=== PATIENT | male | born 1950 | race African-American/Black ===

== ENCOUNTER 2016-10-10 10:55 | Inpatient (IN) | payer MEDICARE, MEDICAID ==
[~2016-10-10] VITALS: Ht 198.1 cm; Wt 121.6 kg
[2016-10-10] MEDS ORDERED: Ketorolac 30mg Inj IV ONE (11:15)
[2016-10-10 11:54] LABS: BASOPHILS % (AUTO) 1.7 % (0.0-2.0); EOSINOPHILS % (AUTO) 0.6 % (0.0-3.0); LYMPHOCYTES % (AUTO) 10.5 % (20.0-45.0); MEAN CORPUSCULAR HEMOGLOBIN 30.3 PG (27.0-31.0); MEAN CORPUSCULAR HGB CONC 33.5 G/DL (32.0-36.0); MEAN CORPUSCULAR VOLUME 90 FL (80-99); MEAN PLATELET VOLUME 5.7 FL (6.5-10.1); MONOCYTES % (AUTO) 10.6 % (1.0-10.0); NEUTROPHILS % (AUTO) 76.6 % (45.0-75.0); PLATELET COUNT 349 K/UL (150-450); RED BLOOD COUNT 4.28 M/UL (4.70-6.10); RED CELL DISTRIBUTION WIDTH 11.6 % (11.6-14.8)
[2016-10-10 12:11] LABS: INR 1.1 (0.9-1.1); PROTHROMBIN TIME 11.1 SEC (9.30-11.50)
[2016-10-10 12:20] LABS: ALANINE AMINOTRANSFERASE 14 U/L (3-41); ALBUMIN/GLOBULIN RATIO 0.8 (1.0-2.7); ANION GAP 14 (5-15); ASPARTATE AMINO TRANSFERASE 14 U/L (5-40); CALCIUM 9.5 mg/dL (8.6-10.2); CARBON DIOXIDE 27 mEQ/L (20-30); CHLORIDE 96 mEQ/L (98-107); CREATININE 1.3 mg/dL (0.7-1.2); CRP QUANT 4.7 mg/dL (< 0.5); GLOMERULAR FILTRATION RATE > 60 mL/min (>60); HEMOLYSIS 2; POTASSIUM 3.8 mEQ/L (3.4-4.9); SODIUM 137 mEQ/L (135-145); TOTAL PROTEIN 8.7 g/dL (6.6-8.7); URIC ACID 10.7 mg/dL (3.0-7.5)
--- NOTE | 2016-10-10 12:43 | Diagnostic Imaging Report ---
Indication: PAIN Technique: 3 views right foot Comparison: none Findings: There is hallux valgus and bunion formation. There are lucencies within the first metatarsal head, which may represent small subchondral cysts or less likely erosions. There is metatarsus adductus. No acute fractures. No dislocations. There is hammertoe deformity of the second third and fourth digits. Impression: Findings as noted. No definite acute bony trauma for lucencies in the first metatarsal head, most likely subchondral cysts, osseous erosions secondary to process such as gouty arthropathy cannot be excluded. Correlate with clinical findings
[2016-10-10 13:00] VITALS: BP 144/85
[2016-10-10 13:05] LABS: ERYTHROCYTE SEDIMENTATION RATE 95 MM/HR (0-20)
[2016-10-10] MEDS ORDERED: fentaNYL 100 mcg/2 mL IV ONE (14:45)
[2016-10-10 15:05] VITALS: BP 152/79
--- NOTE | 2016-10-10 16:27 | Emergency Room Report ---
History of Present Illness General Chief Complaint: Lower Extremity Injury Source: Patient, EMS Present Illness HPI Patient presents with several days of worsened pain and swelling of R foot. No trauma. No fevers. There is some warmth and swelling of skin. Never had this before. Unable to walk at this time. Pain is severe 9/10, burning, radiates from toe to foot. He tried to walk with cane but fell and unable to ambulate after. States weakness of R leg, but he feels more related to pain. No calf tenderness. No cough, chest pain, dyspnea, dysuria, change in urine. Prior tx for alcohol abuse. Tetanus UTD. H/O CHF. Allergies: Coded Allergies: No Known Allergies (Unverified , 11/16/15) Patient History Past Medical History: see triage record Social History: Reports: alcohol use - prior, Denies: smoking Social History Narrative home Reviewed Nursing Documentation: PMH: Agreed, PSxH: Agreed Nursing Documentation-PMH Past Medical History: No History, Except For Hx Cardiac Problems: Yes - chf Hx Hypertension: Yes Review of Systems All Other Systems: negative except mentioned in HPI Physical Exam Vital Signs Date Time Temp Pulse Resp B/P Pulse Ox O2 Delivery O2 Flow Rate FiO2 10/10/16 10:54 98.2 84 18 151/87 98 Room Air Sp02 EP Interpretation: reviewed, normal General Appearance: well appearing, no apparent distress, GCS 15 Head: normocephalic, atraumatic Eyes: bilateral eye PERRL, bilateral eye normal inspection ENT: moist mucus membranes Neck: supple Respiratory: chest non-tender, lungs clear, normal breath sounds Cardiovascular #1: regular rate, rhythm, edema - dorsum of R foot Cardiovascular #2: 2+ radial (R) Gastrointestinal: normal inspection, normal bowel sounds, non tender, soft, no mass, non-distended, overweight Genitourinary: no CVA tenderness Musculoskeletal: back normal, normal range of motion, no calf tenderness, Kaveh 's Sign negative, inflammation, swelling Neurologic: alert, oriented x3 Psychiatric: depressed affect Skin: warm/dry, other - erythema R 1st MTP Medical Decision Making Diagnostic Impression: Primary Impression: Podagra Additional Impression: Inablility to ambulate ER Course Patient with severe R foot pain and swelling - non-traumatic. Ddx: cellulitis, gout, fracture, sprain. Though he c/o weakness, no focality in neuro so CT not indicated. Labs, EKG, foot xray indicated. Will treat with IV hydration and toradol. Labs and x-ray c/w gout. Colchicine ordered. Mild renal insufficiency. Patient slightly improved after tx with toradol and colchicine. Patient unable to ambulate. Admit med Dr. Howard. Laboratory Tests Test 10/10/16 11:30 White Blood Count 11.0 K/UL (4.8-10.8) H Red Blood Count 4.28 M/UL (4.70-6.10) L Hemoglobin 12.9 G/DL (14.2-18.0) L Hematocrit 38.6 % (42.0-52.0) L Mean Corpuscular Volume 90 FL (80-99) Mean Corpuscular Hemoglobin 30.3 PG (27.0-31.0) Mean Corpuscular Hemoglobin Concent 33.5 G/DL (32.0-36.0) Red Cell Distribution Width 11.6 % (11.6-14.8) Platelet Count 349 K/UL (150-450) Mean Platelet Volume 5.7 FL (6.5-10.1) L Neutrophils (%) (Auto) 76.6 % (45.0-75.0) H Lymphocytes (%) (Auto) 10.5 % (20.0-45.0) L Monocytes (%) (Auto) 10.6 % (1.0-10.0) H Eosinophils (%) (Auto) 0.6 % (0.0-3.0) Basophils (%) (Auto) 1.7 % (0.0-2.0) Erythrocyte Sedimentation Rate 95 MM/HR (0-20) H Prothrombin Time 11.1 SEC (9.30-11.50) Prothrombin Time INR 1.1 (0.9-1.1) PTT 25 SEC (23-33) Sodium Level 137 mEQ/L (135-145) Potassium Level 3.8 mEQ/L (3.4-4.9) Chloride Level 96 mEQ/L (98-107) L Carbon Dioxide Level 27 mEQ/L (20-30) Anion Gap 14 (5-15) Blood Urea Nitrogen 17 mg/dL (7-23) Creatinine 1.3 mg/dL (0.7-1.2) H Estimate Glomerular Filtration Rate > 60 mL/min (>60) Glucose Level 115 mg/dL (74-106) H Uric Acid 10.7 mg/dL (3.0-7.5) H Calcium Level 9.5 mg/dL (8.6-10.2) Total Bilirubin 0.6 mg/dL (0.0-1.2) Aspartate Amino Transferase (AST) 14 U/L (5-40) Alanine Aminotransferase (ALT) 14 U/L (3-41) Alkaline Phosphatase 118 U/L (40-129) C-Reactive Protein, Quantitative 4.7 mg/dL (< 0.5) H Total Protein 8.7 g/dL (6.6-8.7) Albumin 4.0 g/dL (3.5-5.2) Globulin 4.7 g/dL Albumin/Globulin Ratio 0.8 (1.0-2.7) L EKG Diagnostic Results Rate: normal Rhythm: NSR ST Segments: no acute changes Rhythm Strip Diag. Results EP Interpretation: yes Rhythm: NSR, no PVC's, no ectopy Other X-Ray Diagnostic Results Other X-Ray Diagnostic Results : X-Ray Ordered: R foot EP Interpretation: Yes Findings: no fractures, no dislocation, other - STS and bony erosion suggestive of gouty arthritis Number of Views: 3 Last Vital Signs Date Time Temp Pulse Resp B/P Pulse Ox O2 Delivery O2 Flow Rate FiO2 10/10/16 23:15 98.2 82 17 138/78 100 Room Air Status: improved Disposition: ADMITTED INPATIENT Condition: Serious Referrals: NOT CHOSEN IPA/,REFERRING (PCP) Sumanth Go M.D. Oct 10, 2016 16:27
[2016-10-10 18:00] VITALS: BP 147/71
--- NOTE | 2016-10-10 19:00 | History & Physical ---
History and Physical History & Physicial full note dictated inability to walk gout elevated UA chf cm plan pain control hydrate allopurinol dc when stable with HH JULITA MARTINEZ Oct 10, 2016 19:00
[2016-10-10 20:30] VITALS: BP 148/75
[2016-10-10 22:00] VITALS: BP 140/76
[2016-10-10] MEDS ORDERED: UNOBMED (22:30)
[2016-10-10 23:15] VITALS: BP 138/78
[2016-10-11] VITALS: BP 137/83
[2016-10-11] MEDS ORDERED: Zolpidem 5mg tab ORAL PRN (01:45)
[2016-10-11] MEDS ORDERED: FAMOTIDINE20 MG ORAL (02:02)
[2016-10-11] MEDS ORDERED: NAPROXEN250 M1 PO (02:02)
[2016-10-11] MEDS ORDERED: POTASSIUM99 M3 PO (02:02)
[2016-10-11] MEDS ORDERED: TOPAMAX100 MG ORAL (02:02)
[2016-10-11] MEDS ORDERED: TOPROL XL100 MG ORAL (02:02)
[2016-10-11] MEDS ORDERED: CARVEDILOL12.5 MG ORAL (02:02)
[2016-10-11] MEDS ORDERED: HYDROCHLOROTHIA50 MG ORAL (02:02)
[2016-10-11 04:00] VITALS: BP 149/84
[2016-10-11 07:59] VITALS: BP 131/80
--- NOTE | 2016-10-11 09:03 | General Progress Note ---
Assessment/Plan Assessment/Plan gout pain inability to walk CM CHF etoh use PLAN pain control add Tylenol #3 Valium PRN allopurinol PT evaluation hydration as needed dc when improved Subjective Allergies: Coded Allergies: No Known Allergies (Unverified , 11/16/15) Subjective still with pain and discomfort tylenol not effective Objective Last 24 Hour Vital Signs Date Time Temp Pulse Resp B/P Pulse Ox O2 Delivery O2 Flow Rate FiO2 10/11/16 07:59 98.1 109 20 131/80 95 Room Air 10/11/16 04:00 97.8 86 19 149/84 98 Room Air 10/11/16 00:00 98.1 86 20 137/83 98 Room Air 10/10/16 23:15 98.2 82 17 138/78 100 Room Air 10/10/16 23:15 98.2 82 17 138/78 100 Room Air 10/10/16 22:00 98.4 81 16 140/76 99 Room Air 10/10/16 20:30 98.3 78 16 148/75 98 Room Air 10/10/16 18:00 81 18 147/71 97 Room Air 10/10/16 15:05 98.2 86 16 152/79 96 Room Air 10/10/16 13:00 98.1 71 16 144/85 99 Room Air 10/10/16 12:04 98.1 10/10/16 10:54 98.2 84 18 151/87 98 Room Air Intake and Output 10/10/16 10/11/16 19:00 07:00 Intake Total 0 ml 260 ml Balance 0 ml 260 ml Intake Oral 0 ml 160 ml IV Total 100 ml # Voids 2 Laboratory Tests 10/10/16 11:30: White Blood Count 11.0H, Red Blood Count 4.28L, Hemoglobin 12.9L, Hematocrit 38.6L, Mean Corpuscular Volume 90, Mean Corpuscular Hemoglobin 30.3, Mean Corpuscular Hemoglobin Concent 33.5, Red Cell Distribution Width 11.6, Platelet Count 349, Mean Platelet Volume 5.7L, Neutrophils (%) (Auto) 76.6H, Lymphocytes (%) (Auto) 10.5L, Monocytes (%) (Auto) 10.6H, Eosinophils (%) (Auto) 0.6, Basophils (%) (Auto) 1.7, Erythrocyte Sedimentation Rate 95H, Prothrombin Time 11.1, Prothromb Time International Ratio 1.1, Activated Partial Thromboplast Time 25, Sodium Level 137, Potassium Level 3.8, Chloride Level 96L, Carbon Dioxide Level 27, Anion Gap 14, Blood Urea Nitrogen 17, Creatinine 1.3H, Estimat Glomerular Filtration Rate > 60, Glucose Level 115H, Uric Acid 10.7H, Calcium Level 9.5, Total Bilirubin 0.6, Aspartate Amino Transf (AST/SGOT) 14, Alanine Aminotransferase (ALT/SGPT) 14, Alkaline Phosphatase 118, C-Reactive Protein, Quantitative 4.7H, Total Protein 8.7, Albumin 4.0, Globulin 4.7, Albumin/Globulin Ratio 0.8L Height (Feet): 6 Height (Inches): 6.00 Weight (Pounds): 268 Objective WDWN NAD clear breath sounds bilaterally without rhonchi or wheeze [id number] without MRG NABS nontender no HSM no CCE toe swelling noted nonfocal JULITA MARTINEZ Oct 11, 2016 09:03
[2016-10-11] MEDS: Allopurinol 100mg Tab ORAL SCH (09:27)
[2016-10-11] MEDS: Topiramate 100mg tab ORAL SCH ×2 (09:29→21:04)
[2016-10-11] MEDS: Carvedilol 12.5mg tab ORAL SCH ×2 (09:29→21:04)
[2016-10-11] MEDS: Tylenol #3 tab (300mg/30mg) ORAL PRN ×3 (09:29→19:41)
[2016-10-11] MEDS: Heparin 5000 units/ml inj SUBQ SCH ×2 (09:33→21:06)
--- NOTE | 2016-10-11 11:01 | Cardiology Report ---
APPROVED REPORT EKG Measurement Heart [id number] Normal sinus rhythm Septal infarct, age undetermined Abnormal ECG
[2016-10-11 11:59] VITALS: BP 126/76
--- NOTE | 2016-10-11 14:39 | History and Physical Report ---
DATE OF ADMISSION: 10/10/2016 REASON FOR ADMISSION: Significant right foot pain and difficulty with ambulating. HISTORY OF PRESENT ILLNESS: This is a 66-year-old male with longstanding history of arthritis, pain, seizure disorder as well as cardiomyopathy. The patient also with longstanding history of alcoholism. The patient presents with right foot pain, this is described as 9/10, difficulty to ambulate. The patient presented by himself, currently unable to ambulate, now admitted for pain control. The patient's case discussed and reviewed. The patient is otherwise comfortable at present. The patient denied any fever or chills. He admits to problem with gout. PAST MEDICAL HISTORY: Notable for history of CHF, history of cardiomyopathy, history of seizure disorder, history of chronic anxiety, and prior history of alcoholism. MEDICATIONS: Reviewed. ALLERGIES: Reviewed. SOCIAL HISTORY: Prior history of alcohol and smoking use. The patient is presently unemployed and is disabled. FAMILY HISTORY: Noncontributory. REVIEW OF SYSTEMS: Review of systems otherwise negative with the exception of the above. PHYSICAL EXAMINATION: GENERAL: This is a well-developed male, comfortable with compliant of pain. VITAL SIGNS: Blood pressure 131/80, respirations 20, saturation 95% on room air, heart rate 109, and temperature is 98.1. HEENT: Fairly negative. Extraocular movements are intact. NECK: Supple. No adenopathy. LUNGS: Otherwise, fairly clear and symmetric. CARDIAC: S1 and S2. Regular, rate, and rhythm without murmurs, rubs, or gallops. ABDOMEN: Soft, nontender, and nondistended. EXTREMITIES: No cyanosis or clubbing. The patient has had swelling of the foot. NEUROLOGIC: Otherwise, grossly nonfocal, but unable to ambulate. The patient is using an ambulatory cane, fairly steady. LABORATORY AND DIAGNOSTIC DATA: Lab data reviewed. White count 11, hemoglobin 12.9, hematocrit 38.6, platelets are 349,000. Chemistry is otherwise fairly normal, however, uric acid is 10.7. IMPRESSION: 1. Probable gout flare-up and inability to walk. 2. joint inflammation 3. Weakness. 4. History of cardiomyopathy. 5. History of congestive heart failure. RECOMMENDATIONS: We will start the patient on allopurinol. We will add Tylenol No. 3 and Valium p.r.n. for pain. Discharge when the patient is able to ambulate and follow up with me upon discharge. Glynn Howard M.D. DR: Ramsey JOB#: [id number] CC: SAMIR
[2016-10-11 16:00] VITALS: BP 101/65
[2016-10-11 19:00] VITALS: BP 136/79
[2016-10-12] VITALS: BP 126/73
[2016-10-12] MEDS: Tylenol #3 tab (300mg/30mg) ORAL PRN ×5 (00:49→23:20)
[2016-10-12 04:00] VITALS: BP 133/76
--- NOTE | 2016-10-12 06:37 | General Progress Note ---
Assessment/Plan Assessment/Plan gout pain inability to walk CM CHF etoh use PLAN pain control add Tylenol #3 Valium PRN allopurinol PT evaluation hydration as needed dc home with home health impression, plan, and exam edited and reviewed in detail care discussed with RN Subjective Allergies: Coded Allergies: No Known Allergies (Unverified , 11/16/15) Subjective some improvement in pain and discomfort tylenol #3 effective Objective Last 24 Hour Vital Signs Date Time Temp Pulse Resp B/P Pulse Ox O2 Delivery O2 Flow Rate FiO2 10/12/16 04:00 97.3 71 20 133/76 98 Room Air 10/12/16 00:00 97.9 77 20 126/73 95 Room Air 10/11/16 21:04 78 136/79 10/11/16 20:40 97.2 10/11/16 19:00 97.5 78 20 136/79 99 Room Air 10/11/16 16:00 97.2 92 20 101/65 93 Room Air 10/11/16 11:59 97.0 80 16 126/76 97 Room Air 10/11/16 09:29 109 131/80 10/11/16 07:59 98.1 109 20 131/80 95 Room Air Intake and Output 10/11/16 10/12/16 19:00 07:00 Intake Total 1850 ml 940 ml Output Total 1150 ml 900 ml Balance 700 ml 40 ml Intake Oral 1350 ml 240 ml IV Total 500 ml 700 ml Output Urine Total 1150 ml 900 ml # Voids 2 # Bowel Movements 1 Height (Feet): 6 Height (Inches): 6.00 Weight (Pounds): 268 Objective WDWN NAD clear breath sounds bilaterally without rhonchi or wheeze [id number] without MRG NABS nontender no HSM no CCE toe swelling noted but improved nonfocal JULITA MARTINEZ Oct 12, 2016 06:37
[2016-10-12 07:58] VITALS: BP 130/73
[2016-10-12] MEDS: Allopurinol 100mg Tab ORAL SCH (08:19)
[2016-10-12] MEDS: Carvedilol 12.5mg tab ORAL SCH ×2 (08:23→21:22)
[2016-10-12] MEDS: Topiramate 100mg tab ORAL SCH ×2 (08:23→21:22)
[2016-10-12] MEDS: Heparin 5000 units/ml inj SUBQ SCH ×2 (08:26→21:23)
[2016-10-12 11:59] VITALS: BP 126/85
[2016-10-12 16:00] VITALS: BP 127/77
[2016-10-12 20:00] VITALS: BP 153/98
[2016-10-13] VITALS: BP 130/75
[2016-10-13 04:00] VITALS: BP 147/85
--- NOTE | 2016-10-13 07:29 | General Progress Note ---
Assessment/Plan Assessment/Plan gout pain inability to walk CM CHF etoh use PLAN pain control add Tylenol #3 Valium PRN allopurinol PT evaluation dc home with home health today impression, plan, and exam edited and reviewed in detail care discussed with RN Subjective Allergies: Coded Allergies: No Known Allergies (Unverified , 11/16/15) Subjective dc held due to pain and discomfort tylenol #3 effective Objective Last 24 Hour Vital Signs Date Time Temp Pulse Resp B/P Pulse Ox O2 Delivery O2 Flow Rate FiO2 10/13/16 04:00 98.2 80 20 147/85 97 Room Air 10/13/16 00:00 98.2 85 20 130/75 93 Room Air 10/12/16 21:22 89 153/98 10/12/16 20:00 98.2 89 15 153/98 98 Room Air 10/12/16 19:50 98.2 10/12/16 16:00 96.3 89 17 127/77 97 Room Air 10/12/16 11:59 98.2 86 19 126/85 97 Room Air 10/12/16 08:23 95 130/73 10/12/16 07:58 97.2 95 19 130/73 96 Room Air Intake and Output 10/12/16 10/13/16 19:00 07:00 Intake Total 520 ml 360 ml Output Total 650 ml 900 ml Balance -130 ml -540 ml Intake Oral 520 ml 360 ml Output Urine Total 650 ml 900 ml # Voids 5 Height (Feet): 6 Height (Inches): 6.00 Weight (Pounds): 268 Objective WDWN NAD clear breath sounds bilaterally without rhonchi or wheeze [id number] without MRG NABS nontender no HSM no CCE toe swelling noted but improved nonfocal JULITA MARTINEZ Oct 13, 2016 07:29
[2016-10-13] MEDS: Tylenol #3 tab (300mg/30mg) ORAL PRN (08:04)
[2016-10-13] MEDS: Allopurinol 100mg Tab ORAL SCH (08:05)
[2016-10-13] MEDS: Carvedilol 12.5mg tab ORAL SCH (08:05)
[2016-10-13] MEDS: Topiramate 100mg tab ORAL SCH (08:05)
[2016-10-13] MEDS: Heparin 5000 units/ml inj SUBQ SCH (08:09)
[2016-10-13 08:14] VITALS: BP 151/88
[2016-10-13] MEDS ORDERED: ACETAMINOPHEN-1 EAC1 ORAL (11:57)
[2016-10-13] MEDS ORDERED: ALLOPURINOL100 M1 ORAL (11:57)
[2016-10-13] MEDS ORDERED: PROTONIX40 MG ORAL (11:58)
[2016-10-13] MEDS ORDERED: DIAZEPAM5 MG ORAL (11:58)
[2016-10-13 12:00] VITALS: BP 138/84
[2016-10-13] MEDS ORDERED: MYLANTA30 M1 PO ×2 (12:01→12:07)
--- NOTE | 2016-10-14 11:29 | Discharge Summary ---
Discharge Summary Hospital Course Date of Admission Oct 10, 2016 at 15:05 Date of Discharge Oct 13, 2016 at 12:45 Admitting Diagnosis gout/weakness HPI Arpit Contreras is a 66 year old male who was admitted on Oct 10, 2016 at 15: 05 for Gout/Weakness Hospital Course [id number] Discharge Discharge Disposition Patient was discharged to SNF Discharge Diagnoses: Naomi Harden NP Oct 14, 2016 11:28
--- NOTE | 2016-10-14 23:58 | Discharge Summary 2 SIG ---
DATE OF ADMISSION: 10/10/2016 DATE OF DISCHARGE: 10/13/2016 BRIEF HOSPITAL COURSE: The patient is a 66-year-old male, who presented to emergency room for complaints of pain and swelling on the right foot. There was no trauma. No fever. Noted warmth and swelling of the skin and unable to walk. The pain was severe 9/10 burning and radiates from toe to foot. He tried to walk with a cane, but fell and unable to ambulate after. There was weakness of the right leg secondary to pain. Denies any calf tenderness. On evaluation at ED, laboratories and x-rays were done consistent with gout. Colchicine was given and was given pain medication. The patient is unable to ambulate. The patient was given allopurinol and pain management. He underwent physical therapy. He was given IV hydration and was eventually discharged to SNF. FINAL DIAGNOSES: 1. Acute gouty attack with inability to walk. 2. Cardiomyopathy. 3. Chronic congestive heart failure. 4. ETOH use. Glynn Howard M.D. I have been assigned to dictate discharge summary on this account and I was not involved in the patient's management. Naomi Harden N.P. DR: HERMAN JOB#: [id number] CC: SAMIR
== END 2016-10-13 12:45 | DRG 554 ==
LOC: EDBD 10:55 → EMR 11:45 → 4E 15:05 → EDBEDREQ 22:49
DX: M10.9 Gout, unspecified (principal); I42.9 Cardiomyopathy, unspecified; I50.9 Heart failure, unspecified; R26.2 Difficulty in walking, not elsewhere classified; F10.20 Alcohol dependence, uncomplicated
CPT/HCPCS: 36415; 80053; 84550; 85025; 85610; 85651; 85730; 86140; 93005

== ENCOUNTER 2017-01-21 19:17 | Emergency (ER) | payer MEDICARE, OTHER ==
[~2017-01-21] VITALS: Ht 198.1 cm; Wt 136.1 kg
[~2017-01-21 19:17] MED LIST: ACETAMINOPHEN-1 EAC1 ORAL; ALLOPURINOL100 M1 ORAL; CARVEDILOL12.5 MG ORAL; DIAZEPAM5 MG ORAL; FAMOTIDINE20 MG ORAL; HYDROCHLOROTHIA50 MG ORAL; MYLANTA30 M1 PO; NAPROXEN250 M1 PO; POTASSIUM99 M3 PO; PROTONIX40 MG ORAL; TOPAMAX100 MG ORAL; TOPROL XL100 MG ORAL; UNOBMED
[2017-01-21] MEDS ORDERED: Norco 5mg/325mg tab ORAL ONE (19:30)
[2017-01-21] MEDS ORDERED: INDOMETHACIN75 MG ORAL (19:33)
[2017-01-21 19:40] VITALS: BP 113/37
[2017-01-21 20:20] VITALS: BP 113/37
--- NOTE | 2017-01-23 10:26 | Diagnostic Imaging Report ---
Indications: Right foot pain Technique: 2 views right foot. Findings: Comparison: None No fracture, dislocation, joint space widening or lytic destruction, periosteal reaction , surrounding soft tissue swelling/foreign body/gas, or other acute changes are identified. Mild hallux valgus. Multiple hammertoe deformities. No other chronic changes are demonstrated. IMPRESSION: No evidence of acute abnormality in the right foot Multiple digital alignment abnormalities as described, chronic in appearance.
--- NOTE | 2017-01-27 06:14 | Emergency Room Report ---
History of Present Illness General Chief Complaint: Pain Source: Patient, EMS Present Illness HPI Patient is a 66-year-old male who presented after increased right foot pain. The patient gradual onset of symptoms. Patient stated that he had prior history of gout. Patient stated that this was similar to prior gout episodes. The patient had run out of his medications which include allopurinol. Patient had been taking thiazide diuretics. Patient had no recent fever. He denies recent alcohol intake. He denied any fever. He denied any numbness to his feet. Allergies: Coded Allergies: No Known Allergies (Unverified , 11/16/15) Patient History Past Medical History: see triage record Reviewed Nursing Documentation: PMH: Agreed, PSxH: Agreed Nursing Documentation-PMH Past Medical History: No History, Except For Hx Hypertension: Yes Hx Cancer: No Hx Gastrointestinal Problems: No Review of Systems All Other Systems: negative except mentioned in HPI Physical Exam Vital Signs Date Time Temp Pulse Resp B/P Pulse Ox O2 Delivery O2 Flow Rate FiO2 01/21/17 19:10 100.0 106 16 113/37 99 Room Air General Appearance: well appearing, no apparent distress, alert, GCS 15 Head: normocephalic, atraumatic ENT: hearing grossly normal, normal voice Neck: full range of motion, supple Respiratory: no respiratory distress, speaking full sentences Gastrointestinal: normal inspection, soft Musculoskeletal: back normal, no calf tenderness, inflammation - great toe mtp Neurologic: normal inspection, alert, oriented x3, normal gait Psychiatric: mood/affect normal Skin: no rash Medical Decision Making Diagnostic Impression: Primary Impression: Gout ER Course Patient presented for foot pain. Differential diagnosis included but was not limited to fracture, contusion, arthritis, vascular insufficiency, aortic aneurysm, cellulitis. X-ray imaging of the right foot show degenerative changes without evident fracture. Patient was advised to discontinue his thiazide diuretics and a fall with Dr. Howard for further management. The patient is also advised to continue a low purine diet and avoid fructose. Patient is advised to return if any worsening condition or if any changes in status that are concerning. Other X-Ray Diagnostic Results Other X-Ray Diagnostic Results : # of Views/Limited Vs Complete: 3 View Indication: Pain EP Interpretation: Yes Interpretation: no dislocation, no soft tissue swelling, no fractures Impression: No acute disease Interpreting ER Provider: Electronically signed by Dr. Daren Jerry M.D. Last Vital Signs Date Time Temp Pulse Resp B/P Pulse Ox O2 Delivery O2 Flow Rate FiO2 01/21/17 20:20 100.0 88 16 113/37 99 Room Air Status: improved Disposition: HOME, SELF-CARE Condition: Stable Referrals: NOT CHOSEN IPA/MD,REFERRING (PCP) Patient Instructions: Gout Additional Instructions: check with Dr. Howard about possible change in hydrochlorthiazide due to gout Daren Edwards Jan 27, 2017 06:14
== END 2017-01-21 20:20 | disposition home or self-care (01) ==
LOC: EDBD 19:17 → EMR 20:15
DX: M79.671 Pain in right foot (principal)
CPT/HCPCS: 99282

== ENCOUNTER 2017-01-24 14:00 | Inpatient (IN) | payer MEDICARE, OTHER ==
[~2017-01-24] VITALS: Ht 198.1 cm; Wt 135.2 kg
[~2017-01-24 14:00] MED LIST changes: +INDOMETHACIN75 MG ORAL
--- NOTE | 2017-01-24 15:28 | History & Physical ---
History and Physical History & Physicial Vital Signs -Extended Height: 71 inches Weight: 298 pounds Temperature: 98.6 degrees F ( oral) Pulse rate: 92 /min Pulse rhythm: regular Respirations: 13 /min O2 Sat: 96% Blood Pressure: 125/83 mm Hg Calculations Body Mass Index: 41.71 Body Surface Area (m2): 2.50 History of Present Illness Hx. Source: patient Primary complaint: Patient is here for follow up and evaluation Duration: weeks Trend of sx: worsening Fever: none Treatment: see med list Trend of Tx: worsens Additional HPI: 66 year old male patient presents today for follow up. The patient is complaining of severe pain in his lower back and foot. He is having difficulty walking and standing. He would like to be sent to a nursing facility again. He notes he needs [facility] care and unable to care for himself. he has no home on a permanent basis. Active Medications (reviewed today): ALLOPURINOL 100 MG ORAL TABS (ALLOPURINOL) 1 po qd VALIUM 5 MG ORAL TABS (DIAZEPAM) 1 qd prn TYLENOL WITH CODEINE #3 300-30 MG ORAL TABS (ACETAMINOPHEN-CODEINE) 1 tab q6 prn LOTRISONE 0.05-1 % CREAM (CLOTRIMAZOLE-BETAMETHASONE) apply to affected area twice a day OMEPRAZOLE 20 MG CPDR (OMEPRAZOLE) 1 cap po qd COMBIGAN 0.2-0.5 % SOLN (BRIMONIDINE TARTRATE-TIMOLOL) one gtt OU BID LISINOPRIL 10 MG TABS (LISINOPRIL) one QD TOPAMAX 100 MG ORAL TABS (TOPIRAMATE) 1 tab po bid LUMIGAN 0.01 % SOLN (BIMATOPROST) one gtt each eye BID CRESTOR 20 MG TABS (ROSUVASTATIN CALCIUM) 1 po daily KLONOPIN 2 MG ORAL TABS (CLONAZEPAM) 1 tab po tid KLOR-CON 8 MEQ CR-TABS (POTASSIUM CHLORIDE) Take 1 tab po daily CARVEDILOL 12.5 MG TABS (CARVEDILOL) 1 tab bid LOSARTAN POTASSIUM 100 MG TABS (LOSARTAN POTASSIUM) 1 tab qd FUROSEMIDE 20 MG TABS (FUROSEMIDE) 1 tab tid ZETIA 10 MG TABS (EZETIMIBE) 1 daily Current Allergies (reviewed today): No known allergies Past History Past Medical History: hypertension, eye disease, chronic back pain. Other medical history includes: Peptic ulcer, had chronic allergies. Born with Bronchitis. Has L leg vericose veins. Cardiomyopathy with EF 15-25%. Hemorrhoids , Lumbar disc disease L5-S1 (on MRI), 12/2011 treadmill and echo, Hypercholesterolemia; low testosterone hx fatty liver, Gout hx lipoma of the elbow region Surgical History: Patient reports ulcer surgery 06/1979. 2000 left eye-detached retina colonoscopy 2013 epidural injections -pain doctor prostate biopsy 2014 Family History (reviewed - no changes required): Father is alive. Mother is . The patient indicates family history of breast cancer (grandmother), hypertension (mother), arthritis (mother). Social History (reviewed - no changes required): YASH is a disabled. The highest level of education achieved by YASH was 12th grade. YASH lives alone. He lives at home in [place]. He is Single with 1 child. YASH's sikhism is Anglican. Additional social history reported by YASH is: Born in [place]. Risk Factors: Smoked Tobacco Use: Former smoker Cigarettes: Yes -- 1 pack weekly pack(s) per day, Pack-years: one pack for 2 days for 35 years Years smoked: 10 on and off Year quit: 2006 Years Since Last Quit: 10 Smokeless Tobacco Use: Never Passive smoke exposure: no Drug use: no HIV high-risk behavior: no Caffeine use: 0 drinks per day Alcohol use: no Seatbelt use: 100 % Sun Exposure: occasionally Review of Systems General: denies fevers, chills, sweats, anorexia, fatigue, malaise, weight loss Eyes: wears glasses Ear/Nose/Throat: nasal congestion; post nasal drip Cardiovascular: Denies chest pain, palpitations, syncope, dyspnea on exertion, orthopnea, PND, peripheral edema Respiratory: cough Gastrointestinal: hemorrhoids Genitourinary: dysuria Musculoskeletal: lower back pain chronic; bilateral knee pain, Skin: varicose veins rash Physical Exam General Appearance: well nourished, well hydrated, no acute distress Respiratory Respiratory Effort: no intercostal retractions or use of accessory muscles Percussion: no dullness Palpation: normal fremitus Auscultation: no rales, rhonchi, or wheezes Cardiovascular Palpation: no thrill or palpable murmurs, no displacement of PMI Auscultation: S1, S2, no murmur, RRR Peripheral Circulation: no cyanosis, clubbing, or varicosities; minimal edema and erythema of the toes/feet Musculoskeletal Gait and Station: has crutches with severe pain with any activity Digits and nails: no clubbing, cyanosis, petechiae, or nodes IMPRESSION intractable back pain gout Asthma elevated cholesterol hypertensive heart disease PLAN PT evaluation MRI LS spine needs placement d/w case management patient agreeable to plan JULITA MARTINEZ Jan 24, 2017 15:28
[2017-01-24] MEDS ORDERED: Diazepam 10mg/2ml Inj IV PRN (16:00)
[2017-01-24] MEDS ORDERED: Tylenol #3 tab (300mg/30mg) ORAL PRN (16:00)
[2017-01-24 16:09] VITALS: BP 150/84
[2017-01-24 20:21] VITALS: BP 129/75
[2017-01-24] MEDS: Carvedilol 12.5mg tab ORAL SCH (20:21)
[2017-01-24] MEDS: Atorvastatin 20mg tab ORAL SCH (20:21)
[2017-01-24] MEDS: Topiramate 100mg tab ORAL SCH (20:21)
[2017-01-24 20:29] LABS: EOSINOPHILS % (AUTO) 1.3 % (0.0-3.0); LYMPHOCYTES % (AUTO) 12.5 % (20.0-45.0); MEAN CORPUSCULAR HEMOGLOBIN 32.7 PG (27.0-31.0); MEAN CORPUSCULAR HGB CONC 35.4 G/DL (32.0-36.0); MEAN CORPUSCULAR VOLUME 92 FL (80-99); MEAN PLATELET VOLUME 5.3 FL (6.5-10.1); MONOCYTES % (AUTO) 11.6 % (1.0-10.0); NEUTROPHILS % (AUTO) 72.8 % (45.0-75.0); PLATELET COUNT 339 K/UL (150-450); RED CELL DISTRIBUTION WIDTH 13.4 % (11.6-14.8); WHITE BLOOD COUNT 11.8 K/UL (4.8-10.8)
[2017-01-24 20:44] LABS: ALBUMIN/GLOBULIN RATIO 0.7 (1.0-2.7); CALCIUM 8.6 mg/dL (8.6-10.2); CREATININE 1.5 mg/dL (0.7-1.2); GLOMERULAR FILTRATION RATE 57.1 mL/min (>60); POTASSIUM 2.8 mEQ/L (3.4-4.9); TOTAL PROTEIN 7.7 g/dL (6.6-8.7); URIC ACID 9.7 mg/dL (3.0-7.5)
[2017-01-24] MEDS: Heparin 5000 units/ml inj SUBQ SCH (21:00)
[2017-01-24] MEDS ORDERED: KCl 10% 40mEq/30ml liquid ORAL ONE (23:00)
[2017-01-24] MEDS: Morphine Sulfate 4mg/ml Inj IVP PRN (23:22)
[2017-01-25 00:02] VITALS: BP 123/82
[2017-01-25] MEDS: Morphine Sulfate 4mg/ml Inj IVP PRN ×4 (03:27→17:17)
[2017-01-25 07:08] LABS: ANION GAP 11 (5-15); CALCIUM 8.7 mg/dL (8.6-10.2); CARBON DIOXIDE 22 mEQ/L (20-30); CHLORIDE 103 mEQ/L (98-107); CREATININE 1.3 mg/dL (0.7-1.2); GLOMERULAR FILTRATION RATE > 60 mL/min (>60); HEMOLYSIS 5; POTASSIUM 3.4 mEQ/L (3.4-4.9); SODIUM 136 mEQ/L (135-145)
[2017-01-25] MEDS: Allopurinol 100mg Tab ORAL SCH (08:13)
[2017-01-25] MEDS: Topiramate 100mg tab ORAL SCH ×2 (08:13→21:11)
[2017-01-25] MEDS: Carvedilol 12.5mg tab ORAL SCH ×2 (08:13→21:10)
[2017-01-25] MEDS: Heparin 5000 units/ml inj SUBQ SCH ×2 (08:20→21:12)
[2017-01-25 08:27] VITALS: BP 125/74
--- NOTE | 2017-01-25 09:15 | General Progress Note ---
Assessment/Plan Assessment/Plan IMPRESSION intractable back pain gout Asthma elevated cholesterol hypertensive heart disease acute renal failure PLAN PT evaluation hydration MRI LS spine jail placement will d/w case management follow up K impression, plan, and exam edited and reviewed in detail care discussed with RN Subjective Allergies: Coded Allergies: No Known Allergies (Unverified , 11/16/15) Subjective awaiting MRI has pain difficulty ambulating Objective Last 24 Hour Vital Signs Date Time Temp Pulse Resp B/P Pulse Ox O2 Delivery O2 Flow Rate FiO2 01/25/17 08:43 97.5 01/25/17 08:27 97.5 83 19 125/74 96 Room Air 01/25/17 08:13 80 123/82 01/25/17 00:02 98.2 80 19 123/82 93 Room Air 01/24/17 20:21 97.9 101 21 129/75 96 Room Air 01/24/17 20:21 96 129/75 01/24/17 18:36 98.2 01/24/17 16:09 98.2 81 18 150/84 97 Room Air Intake and Output 01/24/17 01/25/17 19:00 07:00 Intake Total 360 ml 300 ml Balance 360 ml 300 ml Intake Oral 360 ml IV Total 300 ml # Voids 1 2 # Bowel Movements 1 2 Laboratory Tests 01/24/17 20:00: White Blood Count 11.8H, Red Blood Count 3.70L, Hemoglobin 12.1L, Hematocrit 34.1L, Mean Corpuscular Volume 92, Mean Corpuscular Hemoglobin 32.7H, Mean Corpuscular Hemoglobin Concent 35.4, Red Cell Distribution Width 13.4, Platelet Count 339, Mean Platelet Volume 5.3L, Neutrophils (%) (Auto) 72.8, Lymphocytes ( %) (Auto) 12.5L, Monocytes (%) (Auto) 11.6H, Eosinophils (%) (Auto) 1.3, Basophils (%) (Auto) 2.0, Sodium Level 138, Potassium Level 2.8L, Chloride Level 103, Carbon Dioxide Level 22, Anion Gap 13, Blood Urea Nitrogen 30H, Creatinine 1.5H, Estimat Glomerular Filtration Rate 57.1, Glucose Level 118H, Uric Acid 9.7H, Calcium Level 8.6, Total Bilirubin 0.4, Aspartate Amino Transf ( AST/SGOT) 29, Alanine Aminotransferase (ALT/SGPT) 20, Alkaline Phosphatase 84, Total Protein 7.7, Albumin 3.3L, Globulin 4.4, Albumin/Globulin Ratio 0.7L 01/25/17 05:50: Sodium Level 136, Potassium Level 3.4, Chloride Level 103, Carbon Dioxide Level 22, Anion Gap 11, Blood Urea Nitrogen 25H, Creatinine 1.3H, Estimat Glomerular Filtration Rate > 60, Glucose Level 109H, Calcium Level 8.7 Height (Feet): 6 Height (Inches): 6.00 Weight (Pounds): 298 Objective WDWN NAD clear breath sounds bilaterally without rhonchi or wheeze [id number] without MRG NABS nontender no HSM no CCE nonfocal unable to ambulate significant pain poor mobility JULITA MARTINEZ Jan 25, 2017 09:15
--- NOTE | 2017-01-25 11:25 | Diagnostic Imaging Report ---
Indication: PAIN Technique: Sagittal T1 and T2 fast spin echo, sagittal STIR, axial T1 and T2 fast spin-echo images of the lumbar spine Comparison: Reference made to sacral MRI of October 2013. Findings: Vertebral body heights are preserved. There is degenerative disc narrowing L5-S1. The remainder the disc spaces are preserved. There are extensive degenerative Modic type II changes of the L5 and S1 marrow. The remaining marrow signal is normal. There is no evidence of marrow edema. The conus medullaris terminates at the inferior L1 level. On the lowest cuts, there is a lesion that demonstrate near complete absence of signal on all sequences. This was described on the prior sacral MRI, and most likely represents a benign bone island At L2-3, there is mild circumferential annular bulge. This results in mild to moderate spinal stenosis. No significant neural foraminal stenosis is demonstrated. At L3-4, there is generalized circumferential annular bulge. This, in combination with short pedicles and abundant epidural fat results in moderate to severe spinal canal stenosis. There is also mild compromise of the bilateral neural foramina. At L4-5, there is generalized circumferential annular bulge. This, in combination with short pedicles and facet hypertrophy results in moderate narrowing of the spinal canal. There is mild compromise of the neural foramina by the bulging disc. L5-S1, there is moderate to severe disc space narrowing. There is mild circumferential annular bulge, as well as left paracentral disc protrusion which may impinge upon the left lateral recess. There is mild bilateral neural foraminal compromise, more from facet hypertrophy and from the disc The included extraspinal soft tissues are unremarkable. Impression: Multilevel degenerative changes, as detailed on a level by level basis above. Multilevel spinal stenosis, most severe at L3-4. Left paracentral disc protrusion/osteophyte complex which may impinge upon the left lateral recess at L5-S1 Signal void lesion in the right sacral wing, also described on prior sacral MRI of February 2014, thought to represent a benign bone island
[2017-01-25 12:00] VITALS: BP 134/75
[2017-01-25 16:34] VITALS: BP 131/79
[2017-01-25] MEDS: Timolol 0.5% Op Soln 2.5ml BOTH EYES SCH (17:15)
[2017-01-25] MEDS: Brimonidine 0.2% Opth Sol BOTH EYES SCH (17:15)
[2017-01-25 20:00] VITALS: BP 129/81
[2017-01-25] MEDS: Atorvastatin 20mg tab ORAL SCH (21:11)
[2017-01-26] MEDS: Morphine Sulfate 4mg/ml Inj IVP PRN ×4 (00:12→20:31)
--- NOTE | 2017-01-26 08:10 | General Progress Note ---
Assessment/Plan Assessment/Plan IMPRESSION intractable back pain gout Asthma elevated cholesterol hypertensive heart disease acute renal failure PLAN PT evaluation hydration MRI LS spine noted and reviewed halfway placement will d/w case management follow up K noted impression, plan, and exam edited and reviewed in detail care discussed with RN Subjective Allergies: Coded Allergies: No Known Allergies (Unverified , 11/16/15) Subjective reviewed MRI has pain difficulty ambulating unable to go home Objective Last 24 Hour Vital Signs Date Time Temp Pulse Resp B/P Pulse Ox O2 Delivery O2 Flow Rate FiO2 01/25/17 21:10 74 131/79 01/25/17 20:00 98.1 68 20 129/81 95 Room Air 01/25/17 17:47 97.9 01/25/17 16:34 97.9 74 18 131/79 100 Room Air 01/25/17 12:00 97.2 95 19 134/75 99 Room Air 01/25/17 08:27 97.5 83 19 125/74 96 Room Air 01/25/17 08:13 80 123/82 Intake and Output 01/25/17 01/26/17 18:59 06:59 Intake Total 800 ml 1100 ml Output Total 1200 ml Balance 800 ml -100 ml IV Total 800 ml 1100 ml Output Urine Total 1200 ml # Voids 2 Height (Feet): 6 Height (Inches): 6.00 Weight (Pounds): 298 Objective WDWN NAD clear breath sounds bilaterally without rhonchi or wheeze [id number] without MRG NABS nontender no HSM no CCE nonfocal unable to ambulate significant pain poor mobility reviewed and examined JULITA MARTINEZ Jan 26, 2017 08:10
[2017-01-26] MEDS: Topiramate 100mg tab ORAL SCH ×2 (08:29→20:32)
[2017-01-26] MEDS: Carvedilol 12.5mg tab ORAL SCH ×2 (08:29→20:32)
[2017-01-26] MEDS: Allopurinol 100mg Tab ORAL SCH (08:29)
[2017-01-26] MEDS: Heparin 5000 units/ml inj SUBQ SCH ×2 (08:31→20:34)
[2017-01-26 08:36] VITALS: BP 111/71
[2017-01-26] MEDS ORDERED: DIAZEPAM5 MG ORAL (09:16)
[2017-01-26] MEDS ORDERED: LIPITOR20 MG ORAL (09:16)
[2017-01-26] MEDS ORDERED: MORPHINE 22 MG/1 ML IV (09:17)
[2017-01-26] MEDS ORDERED: LATANOPROST2.5 ML BOTH EYES (09:17)
[2017-01-26] MEDS ORDERED: BRIMONIDINE TART5 ML BOTH EYES (09:17)
[2017-01-26] MEDS ORDERED: HEPARIN SO5000 UNIT2 SUBQ (09:17)
[2017-01-26] MEDS ORDERED: TOPIRAMATE100 MG ORAL (09:18)
[2017-01-26] MEDS ORDERED: TIMOPTIC5 ML OP (09:18)
[2017-01-26 11:25] VITALS: BP 126/78
[2017-01-26 15:59] VITALS: BP 109/85
[2017-01-26] MEDS: Brimonidine 0.2% Opth Sol BOTH EYES SCH (17:37)
[2017-01-26] MEDS: Timolol 0.5% Op Soln 2.5ml BOTH EYES SCH (17:37)
[2017-01-26] MEDS ORDERED: 1/2 NS 1000ml IV ONE (18:21)
[2017-01-26] MEDS ORDERED: NS 275ml ONE (18:21)
[2017-01-26] MEDS ORDERED: D5 1/2NS 1000ml IV ONE (18:21)
[2017-01-26] MEDS ORDERED: Tubing IV Secondary IV ONE (18:21)
[2017-01-26 19:54] VITALS: BP 120/74
[2017-01-26] MEDS: Atorvastatin 20mg tab ORAL SCH (20:33)
[2017-01-27 00:43] VITALS: BP 116/68
[2017-01-27 04:00] VITALS: BP 126/80
--- NOTE | 2017-01-27 08:46 | General Progress Note ---
Assessment/Plan Assessment/Plan IMPRESSION intractable back pain gout Asthma elevated cholesterol hypertensive heart disease acute renal failure PLAN PT evaluation noted hydration likely can dc MRI LS spine noted and reviewed ferry terminal agent placement will d/w case management follow up K noted impression, plan, and exam edited and reviewed in detail care discussed with RN Subjective Allergies: Coded Allergies: No Known Allergies (Unverified , 11/16/15) Subjective has pain difficulty ambulating unable to go home Objective Last 24 Hour Vital Signs Date Time Temp Pulse Resp B/P Pulse Ox O2 Delivery O2 Flow Rate FiO2 01/27/17 04:00 98.0 75 20 126/80 97 Room Air 01/27/17 00:43 98.4 77 20 116/68 95 Room Air 01/26/17 20:32 60 120/74 01/26/17 19:54 98.2 60 20 120/74 98 Room Air 01/26/17 17:00 97.8 01/26/17 15:59 97.8 82 20 109/85 94 Room Air 01/26/17 11:25 98.0 76 20 126/78 99 Room Air Intake and Output 01/26/17 01/27/17 19:00 07:00 Intake Total 1420 ml 1100 ml Output Total 1000 ml Balance 420 ml 1100 ml Intake Oral 1320 ml IV Total 100 ml 1100 ml Output Urine Total 1000 ml # Voids 4 Height (Feet): 6 Height (Inches): 6.00 Weight (Pounds): 298 Objective WDWN NAD clear breath sounds bilaterally without rhonchi or wheeze [id number] without MRG NABS nontender no HSM no CCE nonfocal unable to ambulate significant pain poor mobility reviewed and examined JULITA MARTINEZ Jan 27, 2017 08:46
[2017-01-27 08:52] VITALS: BP 120/72
[2017-01-27] MEDS: Topiramate 100mg tab ORAL SCH (09:21)
[2017-01-27] MEDS: Morphine Sulfate 4mg/ml Inj IVP PRN ×2 (09:22→09:33)
[2017-01-27] MEDS: Allopurinol 100mg Tab ORAL SCH (09:22)
[2017-01-27] MEDS: Heparin 5000 units/ml inj SUBQ SCH (09:32)
[2017-01-27] MEDS: Carvedilol 12.5mg tab ORAL SCH (09:32)
[2017-01-27 12:16] VITALS: BP 118/73
[2017-01-27 16:26] VITALS: BP 136/85
[2017-01-27] MEDS ORDERED: 1/2 NS 1000ml IV ONE (17:59)
--- NOTE | 2017-01-30 12:15 | Discharge Summary ---
Discharge Summary Hospital Course Date of Admission Jan 24, 2017 at 15:02 Date of Discharge Jan 27, 2017 at 18:00 Admitting Diagnosis HPI Arpit Contreras is a 66 year old male who was admitted on Jan 24, 2017 at 15: 02 for Intracable Back Pain Hospital Course dc summary #[id number] Discharge Medications Continued Medications: Acetaminophen With Codeine (T#3) (Tylenol #3 Tab*) Y Tab 1 TAB ORAL Q4H, TAB Allopurinol* (Allopurinol*) 100 Mg Tablet 100 MG ORAL DAILY, #30 TAB Atorvastatin Calcium* (Lipitor*) 20 Mg Tablet 20 MG ORAL BEDTIME, TAB Brimonidine Tartrate* (Alphagan*) 5 Ml Drops 1 DROP BOTH EYES DAILY, ML Carvedilol* (Carvedilol*) 12.5 Mg Tablet 12.5 MG ORAL EVERY 12 HOURS, TAB Diazepam* (Diazepam*) 5 Mg Tablet 5 MG ORAL Q12HR PRN for For Anxiety, #30 TAB 0 Refills Heparin Sod (Porcine) (Heparin Sodium*) 5 000/1 Ml Vial 5000 UNITS SUBQ EVERY 12 HOURS, VIAL Latanoprost* (Xalatan*) 2.5 Ml Drops 1 DROP BOTH EYES BEDTIME, ML 0 Refills Morphine Sulfate* (Morphine Sulfate*) 2 Mg/1 Ml Cartridge 2 MG IV Q4HR PRN for Severe Pain (Pain Scale 7-10), EA Timolol Maleate (Timoptic) 5 Ml Drops 5 ML OP DAILY, ML Topiramate (Topamax) 100 Mg Tablet 100 MG ORAL EVERY 12 HOURS, TAB Discontinued Medications: Al Hydroxide/mg Hydroxide (Mag-Al Liquid) 30 Ml Oral.susp 30 ML PO Q4HR for Shortness of breath, ML Al Hydroxide/mg Hydroxide (Mag-Al Liquid) 30 Ml Oral.susp 30 ML PO Q4HR PRN for Per rx protocol, ML Diazepam* (Diazepam*) 5 Mg Tablet 5 MG ORAL Q6H PRN for ANXIETY, #30 TAB 0 Refills Famotidine (Famotidine) 20 Mg Tablet 20 MG ORAL DAILY, #30 TAB 0 Refills Hydrochlorothiazide* (Hydrochlorothiazide*) 50 Mg Tablet 100 MG ORAL DAILY, TAB Indomethacin* (Indomethacin*) 75 Mg Capsule.er 75 MG ORAL DAILY, #20 CAP 0 Refills Naproxen (Naproxen) 250 Mg Tablet 500 MG PO BID, TAB Pantoprazole* (Protonix*) 40 Mg Tablet.dr 40 MG ORAL DAILY, TAB Potassium Gluconate (Potassium) 99 Mg Tablet 100 MG PO DAILY, TAB Topiramate* (Topamax*) 100 Mg Tablet 100 MG ORAL Q12HR, #60 TAB 0 Refills Unable to Obtain Medications (Unable To Obtain Meds) 1 Ea Ea Discharge Condition Upon Discharge: stable Discharge Disposition Patient was discharged to SNF/Subacute Facility(03) Discharge Diagnoses: Discharge Instructions Discharge Instructions Special Instructions I have been assigned to complete a D/C Summary on this account. I was not involved in the patient management Tisha Lawrence NP (Vanchtein) Jan 30, 2017 12:15
--- NOTE | 2017-01-30 23:31 | Discharge Summary 2 SIG ---
DATE OF ADMISSION: 01/24/2017 DATE OF DISCHARGE: 01/27/2017 REASON FOR ADMISSION: This 66 years old male was seen in the office and complained of severe lower back pain. The patient had difficulty walking and standing. The patient wants to be sent to the nursing facility. He is unable to care for himself and has no home on a permanent basis. The patient admitted to the hospital for placement and pain management. ADMITTING DIAGNOSES: 1. Intractable back pain. 2. Hypertensive heart disease. 3. Acute renal failure. 4. Hyperkalemia. 5. Hypercholesterolemia. 6. Gout. 7. Asthma. Of note, upon admission BUN 30, creatinine 1.5, and potassium 2.8. HOSPITAL COURSE: The patient admitted. The patient started on IV hydration. Renal parameters and electrolytes were closely monitored. Nephrotoxics were avoided. MRI of the LS spine was done, which revealed multilevel degenerative disk disease as well as severe spinal stenosis at levels L3-L4 with multilevel spinal stenosis. The patient was working with physical and occupational therapy. According to physical and occupational therapy evaluation, the patient will benefit from staying at the [facility] for rehabilitation services. dietary services manager was contacted. The placement was found at [facility]. Potassium stable after replacement at 3.4. Renal parameters with some improvement. BUN down to 25 from 30 and creatinine down to 1.3 from 1.5. Acute renal failure likely prerenal, possibly due to dehydration. The patient was stable for discharge. Supplemental oxygen and pulmonary toilet provided as needed. Pulse oximetry stable on room air. No evidence of asthma exacerbation. Blood pressure was stable with current regimen. Statin was continued. Allopurinol was continued. Uric acid with some elevation. To follow up at the [facility] facility. The patient was stable for discharge. Also DVT prophylaxis provided. DISCHARGE DIAGNOSES: 1. Intractable back pain. 2. Degenerative disk disease, multilevel. 3. Severe spinal stenosis at L3-L4 with multilevel spinal stenosis. 4. Gout. 5. Asthma. 6. Hypertensive heart disease. 7. Hypercholesteremia. 8. Acute renal failure, improved. 9. Hypokalemia, resolved. DISCHARGE MEDICATIONS: See medication reconciliation list. DISCHARGE INSTRUCTIONS: The patient discharged to [facility] facility for PT/OT services. FOLLOWUP: Follow up with medical doctor at the facility. Glynn Howard M.D. I have been assigned to dictate discharge summary on this account and I was not involved in the patient's management. Tisha Lawrence (vanchtein) NVenita DR: Mauricio JOB#: [id number] CC:
== END 2017-01-27 18:00 | DRG 552 ==
LOC: 4W 15:02
DX: M48.06 Spinal stenosis, lumbar region (principal); N17.9 Acute kidney failure, unspecified; I11.9 Hypertensive heart disease without heart failure; M10.9 Gout, unspecified; J45.909 Unspecified asthma, uncomplicated; Z87.891 Personal history of nicotine dependence; M54.5 Low back pain; E78.00 Pure hypercholesterolemia, unspecified; M51.36 Other intervertebral disc degeneration, lumbar region; E87.6 Hypokalemia; E86.0 Dehydration
CPT/HCPCS: 36415; 72148; 80048; 80053; 84550; 85025

== ENCOUNTER 2018-10-28 12:10 | Emergency (ER) | payer MEDICARE, OTHER ==
[~2018-10-28] VITALS: Ht 198.1 cm; Wt 113.4 kg
[~2018-10-28 12:10] MED LIST changes: +BRIMONIDINE TART5 ML BOTH EYES; +HEPARIN SO5000 UNIT2 SUBQ; +LATANOPROST2.5 ML BOTH EYES; +LIPITOR20 MG ORAL; +MORPHINE 22 MG/1 ML IV; +TIMOPTIC5 ML OP; +TOPIRAMATE100 MG ORAL
[2018-10-28 12:14] VITALS: BP 141/86
--- NOTE | 2018-10-28 12:22 | NUR ---
ED Nurse Note: PT. AAOX4.AMBULATORY. CAME IN TO ER DUE TO COUGH X 1 MONTH AND REPORTS OF YELLOWISH AND BROWNISH.LUNG SOUNDS ARE CLEAR TO AUSCULTATION
--- NOTE | 2018-10-28 12:38 | Emergency Room Report ---
History of Present Illness General Chief Complaint: Upper Respiratory Illness Source: Patient Present Illness HPI Patient is a 68 old male presenting for cough for the past one month. He states that he has had other associated symptoms including nasal congestion and occasional facial pressure. He denies any symptoms including shortness of breath, chest pain, fever, chills, night sweats, hemoptysis. Allergies: Coded Allergies: No Known Allergies (Unverified , 11/16/15) Patient History Past Medical History: see triage record Pertinent Family History: none Social History: Reports: smoking - quit in 2007 Reviewed Nursing Documentation: PMH: Agreed; PSxH: Agreed Nursing Documentation-PM Past Medical History: No History, Except For Hx Cardiac Problems: Yes Hx Hypertension: Yes Hx COPD: No Hx Cancer: No Hx Gastrointestinal Problems: No Hx Neurological Problems: No Review of Systems Respiratory: Reports: cough, sputum; Denies: no symptoms, see HPI, orthopnea, shortness of breath, stridor, wheezing, LAU, other Cardiovascular: Denies: no symptoms, see HPI, chest pain, edema, palpitations, syncope, PND, other All Other Systems: negative except mentioned in HPI Physical Exam Vital Signs Date Time Temp Pulse Resp B/P (MAP) Pulse Ox O2 Delivery O2 Flow Rate FiO2 10/28/18 12:14 98.4 82 20 141/86 92 Room Air Sp02 EP Interpretation: reviewed, normal General Appearance: no apparent distress, alert, GCS 15, non-toxic Head: normocephalic, atraumatic Eyes: bilateral eye normal inspection, bilateral eye PERRL ENT: normal pharynx, no angioedema, normal voice, uvula midline, nasal congestion Neck: full range of motion, supple/symm/no masses Respiratory: chest non-tender, lungs clear, normal breath sounds, no rhonchi, no respiratory distress, no accessory muscle use, no wheezing, speaking full sentences Cardiovascular #1: regular rate, rhythm, no edema Musculoskeletal: back normal, gait/station normal, normal range of motion, non- tender Neurologic: alert, oriented x3, responsive, motor strength/tone normal, sensory intact, speech normal Psychiatric: judgement/insight normal, memory normal, mood/affect normal, no suicidal/homicidal ideation Skin: normal color, no rash, warm/dry, well hydrated Medical Decision Making PA Attestation Dr. Edwards is my supervising physician. Patient management was discussed with my supervising physician Diagnostic Impression: Primary Impression: Acute rhinitis ER Course Patient is a 68-year-old male presenting for one month of nasal congestion and cough Differential diagnosis include but not limited to pharyngitis, sinusitis, PNA, bronchitis, asthma, among others PE: Afebrile. NAD HEENT: There is nasal congestion with edema. Oropharynx unremarkable. No tenderness to palpation over sinuses Lungs are clear to auscultation bilaterally. No respiratory distress Two-view chest x-ray shows no acute findings Patient is given prescription for Flonase and cough medication. He is told to follow-up with primary doctor within the next 3 days. ER precautions given Chest X-Ray Diagnostic Results Chest X-Ray Diagnostic Results : Chest X-Ray Ordered: Yes # of Views/Limited/Complete: 2 View, Complete Indication: Other - cough EP Interpretation: Yes PA Xray: Interpretation reviewed, by supervising MD, and agrees with findings. Interpretation: no consolidation, no effusion, no pneumothorax Impression: No acute disease Electronically Signed by: Mario Jordan PA-C Last Vital Signs Date Time Temp Pulse Resp B/P (MAP) Pulse Ox O2 Delivery O2 Flow Rate FiO2 10/28/18 12:14 82 20 Room Air 10/28/18 12:14 98.4 141/86 92 Status: improved Disposition: HOME, SELF-CARE Condition: Improved Scripts Codeine/Promethazine Hcl* (PROMETHAZINE-CODEINE SYRUP*) 118 Ml Syrup 5 ML ORAL Q6H PRN for For Cough, #118 ML 0 Refills Prov: MARIO JORDAN 10/28/18 Fluticasone Propionate (Flonase Allergy Relief) 9.9 Ml [place].susp 1 SPRAYS NS DAILY, #10 ML Prov: MARIO JORDANA. 10/28/18 MARIO JORDAN Oct 28, 2018 12:38
--- NOTE | 2018-10-28 13:04 | NUR ---
ED Nurse Note: Xray at the bedside.
[2018-10-28] MEDS ORDERED: PROMETHAZINE-C118 M1 ORAL (13:21)
[2018-10-28] MEDS ORDERED: FLONASE ALLERG9.9 ML NS (13:21)
[2018-10-28 13:29] VITALS: BP 140/87
--- NOTE | 2018-10-28 13:30 | NUR ---
ER DISCHARGE NOTE: Patient is cleared to be discharged per ERMD, pt is aox4, on room air, with stable vital signs. pt was given dc and prescription instructions, pt was able to verbalize understanding, pt id band removed without complications. pt is able to ambulate with steady gait. pt took all belongings.
--- NOTE | 2018-10-29 09:28 | Diagnostic Imaging Report ---
Indication: Cough Technique: 2 views of the chest Comparison: 03/07/2011 Findings: Lungs and pleural spaces are clear. Heart size is normal. Previously demonstrated cardiomegaly has resolved Impression: No acute process
== END 2018-10-28 13:30 | disposition home or self-care (01) ==
LOC: EMR 13:25
DX: J00 Acute nasopharyngitis [common cold] (principal); I10 Essential (primary) hypertension; Z87.891 Personal history of nicotine dependence
CPT/HCPCS: 71046; 99283

== ENCOUNTER 2019-11-10 15:50 | Emergency (ER) | payer MEDICARE, OTHER ==
[~2019-11-10] VITALS: Ht 198.1 cm; Wt 102.1 kg
[~2019-11-10 15:50] MED LIST changes: +FLONASE ALLERG9.9 ML NS; +PROMETHAZINE-C118 M1 ORAL
--- NOTE | 2019-11-10 16:30 | NUR ---
ED Nurse Note: Pt ambulated to ED d/t pain on RT wrist d/t fall. Pt is AOx4, calm and cooperative, VSS, on RA, afebrile on triage. skin affected is clean/intact. Placed on chair.
[2019-11-10 16:44] VITALS: BP 119/69
[2019-11-10 16:51] VITALS: BP 119/69
--- NOTE | 2019-11-10 16:51 | NUR ---
ER DISCHARGE NOTE: Pt is cleared to be discharged per ERMD, pt is aox4, on room air, with stable vital signs. pt was given dc and prescription instructions, pt was able to verbalize understanding, pt id band removed. pt is able to ambulate with steady gait. pt took all belongings.
--- NOTE | 2019-11-10 17:06 | Diagnostic Imaging Report ---
EXAM: XR Right Wrist Complete, 3 or More Views CLINICAL HISTORY: PAIN TECHNIQUE: Frontal, lateral and oblique views of the right wrist. COMPARISON: No relevant prior studies available. FINDINGS: Bones/joints: Osteopenic. 1.8 cm benign-appearing round well- circumscribed distal ulnar metaphyseal bony lesion, may be an enchondroma. Very mild degenerative change at the first carpometacarpal joint. No acute fracture. No dislocation. Soft tissues: Unremarkable. No radiopaque foreign body. IMPRESSION: Osteopenic. No acute fracture or malalignment.
--- NOTE | 2019-11-10 18:14 | Emergency Room Report ---
History of Present Illness General Chief Complaint: Upper Extremity Injury Source: Medical Record Present Illness HPI Patient is a 69-year-old male who presents after increased right upper extremity discomfort. Reports having onset of symptoms approximately 3 days prior to arrival. Lost his balance and injured his wrist. Denies any pain to the wrist itself. Reports having increased difficulty with movement after falling asleep. He states he was drinking on that day. Denies any other locations of weakness or numbness. Allergies: Coded Allergies: No Known Allergies (Unverified , 11/16/15) COVID-19 Screening Contact w/high risk pt: No Recent Travel to affected area: No Experienced COVID-19 symptoms?: No Patient History Past Medical History: see triage record Reviewed Nursing Documentation: PMH: Agreed; PSxH: Agreed Nursing Documentation-PMH Past Medical History: No History, Except For Hx Cardiac Problems: Yes Hx Hypertension: Yes Hx COPD: No Hx Cancer: No Hx Gastrointestinal Problems: No Hx Neurological Problems: No Review of Systems All Other Systems: negative except mentioned in HPI Physical Exam Vital Signs Date Time Temp Pulse Resp B/P (MAP) Pulse Ox O2 Delivery O2 Flow Rate FiO2 11/10/19 15:56 98.1 73 16 119/69 (86) 96 Room Air Sp02 EP Interpretation: reviewed, normal General Appearance: normal inspection, well appearing, no apparent distress, alert, GCS 15 Head: atraumatic ENT: normal ENT inspection, hearing grossly normal, normal voice Neck: normal inspection, full range of motion, supple, no bony tend Respiratory: normal inspection, lungs clear, normal breath sounds, no respiratory distress, no retraction, no wheezing Cardiovascular #1: regular rate, rhythm, no edema Gastrointestinal: normal inspection, normal bowel sounds, non tender, soft, no guarding, no hernia Genitourinary: no CVA tenderness Musculoskeletal: normal inspection, back normal, normal range of motion Neurologic: alert, water tester III-XII nml as tested, oriented x3, responsive, speech normal, normal inspection, other - Right hand extensor wrist weakness as well as difficulty with extending the fingers. Normal strength with flexion of the fingers Psychiatric: normal inspection, judgement/insight normal, memory normal, mood/ affect normal Medical Decision Making Diagnostic Impression: Primary Impression: Monday paralysis of right upper extremity ER Course Patient presented for right hand weakness. Differential diagnosis include was not limited to fracture, Saturday night palsy, CVA, among others. X-ray imaging showed no evidence of acute fracture. Patient does not appear to have any right upper extremity weakness outside of his hand. Biceps and triceps appear to have normal strength. Patient has what appears to be a wrist drop likely caused by Monday night palsy. Patient was advised to follow-up with his primary care physician for hand specialty and physical therapy. He was advised to return if worse. The patient is advised to follow up with primary care doctor in 1-2 days. Patient is advised to return if any worsening condition or if any changes in status that are concerning. This report is dictated with [employer] credit and loan collections supervisor software which may occasionally lead to discrepancies related to use of this software. Last Vital Signs Date Time Temp Pulse Resp B/P (MAP) Pulse Ox O2 Delivery O2 Flow Rate FiO2 11/10/19 16:44 98.1 16 119/69 96 Room Air 11/10/19 15:56 73 Status: improved Disposition: HOME, SELF-CARE Condition: Stable Referrals: NOT CHOSEN IPA/MD,REFERRING (PCP) Patient Instructions: Peripheral Neuropathy Additional Instructions: Follow up with your doctor for physical therapy referal. Return if worse. Daren Edwards MD Nov 10, 2019 18:14
== END 2019-11-10 16:51 | disposition home or self-care (01) ==
LOC: EMR 16:32
DX: G82.20 Paraplegia, unspecified (principal); I10 Essential (primary) hypertension
CPT/HCPCS: 99283